=== PATIENT | male | born 1990 | race African-American/Black ===

== ENCOUNTER 2017-03-11 00:17 | Emergency (ER) | payer SELFPAY ==
[~2017-03-11] VITALS: Ht 182.9 cm; Wt 86.7 kg
[2017-03-11] MEDS ORDERED: ROXICODONE5 MG PO (02:14)
[2017-03-11 02:33] VITALS: BP 141/102
== END 2017-03-11 02:34 | disposition home or self-care (01) ==
LOC: EXP 00:17 → EME 00:17 → EXP 02:34
PROC: 2W0CX1Z Change Splint on Right Lower Arm (ICD-10-PCS; principal; 2017-03-11)
DX: Z46.89 Encounter for fitting and adjustment of other specified devices (principal); S62.001D Unspecified fracture of navicular [scaphoid] bone of right wrist, subsequent encounter for fracture with routine healing; W22.8XXD Striking against or struck by other objects, subsequent encounter; M79.641 Pain in right hand; F17.200 Nicotine dependence, unspecified, uncomplicated
CPT/HCPCS: 99281; 99283

== ENCOUNTER 2017-03-15 14:13 | Emergency (ER) | payer OTHER ==
[~2017-03-15] VITALS: Ht 182.9 cm; Wt 86.4 kg
[~2017-03-15 14:13] MED LIST: ROXICODONE5 MG PO
[2017-03-15] MEDS ORDERED: NAPROXEN500 MG PO (19:33)
[2017-03-15 19:38] VITALS: BP 139/83
== END 2017-03-15 19:39 | disposition home or self-care (01) ==
LOC: EME 14:13
PROC: 2W3CX1Z Immobilization of Right Lower Arm using Splint (ICD-10-PCS; principal; 2017-03-15)
DX: M25.531 Pain in right wrist (principal); Z87.81 Personal history of (healed) traumatic fracture
CPT/HCPCS: 99281; 99283

== ENCOUNTER 2017-07-20 20:31 | Emergency (ER) | payer OTHER ==
[~2017-07-20] VITALS: Ht 182.9 cm; Wt 85.7 kg
[~2017-07-20 20:31] MED LIST changes: +NAPROXEN500 MG PO
[2017-07-20 21:00] LABS: HEMATOCRIT 45.1 % (38.0-50.0); HEMOGLOBIN 15.2 G/DL (12.5-16.6); MCH 31.3 PG (29.0-34.0); MCHC 33.7 G/DL (30.0-36.0); MCV 92.8 FL (86-99); PLATELET COUNT 274 K/uL (156-360); RBC DIS.WIDTH-SD 48.2 % (39-53); RED BLOOD COUNT 4.86 M/uL (4.00-5.50); WHITE BLOOD COUNT 4.4 K/uL (4.1-10.2)
[2017-07-20 21:11] LABS: ALBUMIN 4.5 g/dL (3.2-4.8); CHLORIDE 106 mEq/L (99-109); POTASSIUM 3.6 mEq/L (3.7-5.4); SODIUM 145 mEq/L (136-147)
[2017-07-20 21:14] LABS: GLUCOSE 109 mg/dL (70-99); TOTAL PROTEIN 7.7 g/dL (6.4-8.3)
[2017-07-20 21:16] LABS: TOTAL BILIRUBIN 0.5 mg/dL (0.0-1.0)
[2017-07-20 21:17] LABS: ALKALINE PHOSPHATASE 67 IU/L (3-129); SERUM ETHYL ALCOHOL 197 mg/dL
[2017-07-20 21:18] LABS: GFR ESTIMATE (CALCULATED) > 59 mL/min/ (58.99-99999)
[2017-07-20 21:19] LABS: AST (GOT) 33 IU/L (2-34); UREA NITROGEN (BUN) 4 mg/dL (9-23)
[2017-07-20 21:20] LABS: ALT (GPT) 29 IU/L (3-49)
[2017-07-21 02:15] VITALS: BP 147/96
== END 2017-07-21 02:17 | disposition home or self-care (01) ==
LOC: EME 20:31
PROVIDERS: Emergency Medicine
DX: F10.129 Alcohol abuse with intoxication, unspecified (principal); Y90.6 Blood alcohol level of 120-199 mg/100 ml; R45.851 Suicidal ideations; R45.1 Restlessness and agitation; F43.20 Adjustment disorder, unspecified
CPT/HCPCS: 80053; 81003; 85027; 90837; 99281; 99285; G0480